=== PATIENT | female | born 1950 | race Caucasian/White ===

== ENCOUNTER 2023-06-12 08:39 | Outpatient (CLI) | payer MEDICARE, BC ==
[2023-06-12] MEDS ORDERED: iohexol 350MG/ML 100ml bottle IV ONE (08:51)
== END 2023-06-12 23:59 | disposition home or self-care (01) ==
LOC: RAD 08:39
PROVIDERS: ATTEND Internal Medicine Interventional Cardiology
DX: I65.23 Occlusion and stenosis of bilateral carotid arteries (principal); I11.9 Hypertensive heart disease without heart failure; E04.2 Nontoxic multinodular goiter
CPT/HCPCS: 70498; J3490; Q9967